=== PATIENT | male | born 1975 | race Caucasian/White ===

== ENCOUNTER → 2019-12-03 | Outpatient (REF) | LOC: M LAB REF 11:43 → M LAB LCGH 11:43 → M LAB REF 12:23 | DX: Z13.9 Encounter for screening, unspecified (principal) ==

== ENCOUNTER → 2020-04-25 | Outpatient (REF) | payer OTHER ==
[2020-04-25 16:01] LABS: CREATININE, URINE 69.1 MG/DL; MALB URINE SIEMENS 12.7 MG/L; MAU/CREAT RATIO 18.3 MCG/MG (0.0-30.0)
== END ==
LOC: M LAB REF 15:06
PROVIDERS: ATTEND Nurse Practitioner Family
DX: E11.65 Type 2 diabetes mellitus with hyperglycemia (principal)